=== PATIENT | male | born 1950 ===

== ENCOUNTER 2019-01-22 14:08 | Outpatient (RCR) | payer MEDICAID, MEDICARE | END 2019-02-07 | disposition home or self-care (01) | LOC: WCC 14:08 | DX: L97.513 Non-pressure chronic ulcer of other part of right foot with necrosis of muscle (principal); E11.40 Type 2 diabetes mellitus with diabetic neuropathy, unspecified; I70.244 Atherosclerosis of native arteries of left leg with ulceration of heel and midfoot; I73.9 Peripheral vascular disease, unspecified; M86.071 Acute hematogenous osteomyelitis, right ankle and foot; I10 Essential (primary) hypertension | CPT/HCPCS: G0463 ==